=== PATIENT | male | born 1965 | race Hispanic/Latino ===

== ENCOUNTER 2018-03-07 10:49 | Emergency (ER) | payer OTHER ==
[~2018-03-07] VITALS: Ht 182.9 cm; Wt 115.7 kg
--- NOTE | 2018-03-07 12:15 | Diagnostic Imaging Report ---
Examination: CT BRAIN WO History:Blurry vision Comparison studies:None Technique: Axial images were obtained from the skull base to the vertex. Coronal and sagittal images reconstructed from the axial data. Intravenous contrast: None Findings: Scalp: No abnormalities. Bones: No fractures, blastic or lytic lesions. Brain sulci: Appropriate for age. Ventricles: Normal in size and configuration. No hydrocephalus. Extra-axial space: No abnormalities. Parenchyma: No abnormal densities. No masses, hemorrhage, acute or chronic vascular insults. Sellar/suprasellar region: No abnormalities. Craniocervical junction: Patent foramen magnum. No Chiari one malformation. Incidental findings: Nonspecific metallic density at the left medial orbital wall. Impression: No intracranial abnormalities. Signed by: Dr. Taz Montgomery M.D. on 03/07/2018 5:28 PM
== END 2018-03-07 13:30 | disposition home or self-care (01) ==
LOC: ER 10:49
DX: H53.8 Other visual disturbances (principal)
CPT/HCPCS: 70450; 93970; 99282